=== PATIENT | female | born 1945 | race Caucasian/White ===

== ENCOUNTER → 2019-01-04 | Outpatient (CLI) | payer OTHER ==
[~2019-01-04] MED LIST: CLINDAMYCIN HC300 MG PO
== END | disposition home or self-care (01) ==
LOC: MAMMO 10:40
DX: Z12.31 Encounter for screening mammogram for malignant neoplasm of breast (principal)

== ENCOUNTER → 2019-02-01 | Outpatient (CLI) | payer OTHER | END | disposition home or self-care (01) | LOC: MAMMO 11:30 | DX: R92.8 Other abnormal and inconclusive findings on diagnostic imaging of breast (principal) ==

== ENCOUNTER 2019-03-31 17:53 | Emergency (ER) | payer OTHER ==
[~2019-03-31] VITALS: Ht 160 cm; Wt 57.2 kg
--- NOTE | ~2019-03-31 | EKG ---
[place], [place] ELECTROCARDIOGRAM REPORT NAME: NATHALY CAMEJO V UNIT #: [id number] ROOM: DOCTOR: EPIPHANY DRAFT REPORT BIRTHDATE: [birth year] [facility] Test Date: 2019-03-31 Test Time: 18:16:46 Pat Name: NATHALY CAMEJO Department: Room: Gender: F Doula: : 1945 Requested By: RUBEN SIMPSON DNP Order Number: [id number] Reading MD: Ady Gr MD Measurements Intervals [place] Rate: 39 P: 67 VA: 255 QRS: 16 QRSD: 90 T: 52 QT: 468 QTc: 377 Interpretive Statements Sinus rhythm Type I second degree block/ [place] Atrial premature complexes Prolonged VA interval Electronically Signed On 04-09-2019 5:25:41 PST by Ady Gr MD CM:EKGRPT:ELECTROCARDIOGRAM REPORT [id number] RUBEN SIMPSON DNP EPIPHANY DRAFT REPORT RUBEN SIMPSON DNP
--- NOTE | ~2019-03-31 | EKG ---
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
[2019-03-31] MEDS ORDERED: HYDROXYCHLOROQ200 M1 PO (18:00)
[2019-03-31] MEDS ORDERED: LEVOTHYROXINE125 MCG PO (18:01)
[2019-03-31] MEDS ORDERED: LISINOPRIL5 MG PO (18:01)
[2019-03-31] MEDS ORDERED: OYSTER SHELL 51 EACH PO (18:02)
[2019-03-31] MEDS ORDERED: ATORVASTATIN CA10 M1 PO (18:03)
[2019-03-31 18:28] LABS: BASO % 0.2 % (0.0-1.0); EOS # 0.1 10*3/uL (0.0-0.4); EOS % 0.5 % (1.0-4.0); HEMATOCRIT 39.3 % (37.0-47.0); HEMOGLOBIN 13.3 g/dl (12.0-16.0); LYMPH # 0.8 10*3/uL (1.3-4.4); LYMPH % 7.4 % (27.0-41.0); MEAN CELL VOLUME 96.8 fl (81.0-99.0); MEAN CORPUSCULAR HGB 32.8 pg (27.0-31.0); MEAN CORPUSCULAR HGB CONC 33.8 g/dl (33.0-37.0); MEAN PLATELET VOLUME 11.2 fl (9.6-12.3); MONO # 0.7 10*3/uL (0.1-1.0); MONO % 6.7 % (3.0-9.0); NEUT % 84.7 % (47.0-73.0); PLATELET COUNT AUTOMATED 343 10*3/uL (130-400); RED BLOOD COUNT 4.06 10*6/uL (4.10-5.10); RED CELL DISTRI WIDTH 12.5 % (0-14.5); WHITE BLOOD COUNT 10.6 10*3/uL (4.8-10.8)
[2019-03-31 18:44] LABS: ALBUMIN 4.2 gm/dl (3.1-4.5); ALKALINE PHOSPHATASE 116 U/L (45-117); BUN 12 mg/dl (7-24); CHLORIDE 99 mmol/L (98-107); CREATININE 0.73 mg/dL (0.55-1.02); LIPASE 112 U/L (73-393); POTASSIUM 3.8 mmol/L (3.5-5.1); SGOT/AST 34 IU/L (3-35); SGPT/ALT 36 U/L (12-78); SODIUM 133 mmol/L (136-145); TOTAL PROTEIN 7.6 gm/dL (6.4-8.2)
[2019-03-31 19:26] LABS: ACT PARTIAL THROMBO TIME 24.7 SECONDS (20.0-32.1); INTERNATIONAL NORM RATIO 0.9 (2.0-3.5)
[2019-03-31 20:27] LABS: BILIRUBIN NEGATIVE (NEGATIVE); BLOOD NEGATIVE (NEGATIVE); CLARITY CLEAR (CLEAR); COLOR YELLOW (YELLOW); GLUCOSE NEGATIVE (NEGATIVE); KETONE NEGATIVE (NEGATIVE); LEUKO ESTERASE NEGATIVE (NEGATIVE); NITRITE NEGATIVE (NEGATIVE); SPECIFIC GRAVITY <= 1.005 (1.005-1.030); UROBILINOGEN 0.2 E.U./dl (0.2-1.0)
[2019-03-31 20:35] LABS: BACTERIA TRACE
== END 2019-03-31 22:35 | disposition short-term general hospital (02) ==
LOC: ED 17:53
PROVIDERS: Nurse Practitioner Family
DX: I44.2 Atrioventricular block, complete (principal); R79.89 Other specified abnormal findings of blood chemistry; E03.9 Hypothyroidism, unspecified; I10 Essential (primary) hypertension; E78.5 Hyperlipidemia, unspecified; Z88.0 Allergy status to penicillin; Z88.2 Allergy status to sulfonamides; Z88.1 Allergy status to other antibiotic agents; Z79.899 Other long term (current) drug therapy

== ENCOUNTER → 2022-03-04 | Outpatient (CLI) | payer OTHER ==
[~2022-03-04] MED LIST changes: +ATORVASTATIN CA10 M1 PO; +HYDROXYCHLOROQ200 M1 PO; +LEVOTHYROXINE125 MCG PO; +LISINOPRIL5 MG PO; +OYSTER SHELL 51 EACH PO
== END | disposition home or self-care (01) ==
LOC: MAMMO 02-26 07:30
PROVIDERS: ATTEND Internal Medicine Nephrology
DX: Z12.31 Encounter for screening mammogram for malignant neoplasm of breast (principal); N64.89 Other specified disorders of breast

== ENCOUNTER → 2023-03-19 | Outpatient (CLI) | payer OTHER | END | disposition home or self-care (01) | LOC: RAD 09:00 | PROVIDERS: ATTEND Internal Medicine Nephrology | DX: M81.0 Age-related osteoporosis without current pathological fracture (principal) ==

== ENCOUNTER → 2023-04-01 | Outpatient (CLI) | payer OTHER | END | disposition home or self-care (01) | LOC: MAMMO 01:06 | PROVIDERS: ATTEND Internal Medicine Nephrology | DX: Z12.31 Encounter for screening mammogram for malignant neoplasm of breast (principal); R92.1 Mammographic calcification found on diagnostic imaging of breast ==